=== PATIENT | female | born 1980 | race Caucasian/White ===

== ENCOUNTER 2016-08-05 21:26 | Emergency (ER) | payer BC ==
[~2016-08-05] VITALS: Ht 152.4 cm; Wt 63.0 kg
[~2016-08-05 21:26] MED LIST: ALBUTEROL-200 PUFFS/ IH; ALBUTEROL2 PUFFS/17 IN; ALLEGRA180 MG PO; ALLEGRA30 MG; ALLEGRA60 MG PO; AMOXIL500 MG PO; BACTRIM DS 8001 TAB PO; BENADRYL 25MG C25 MG PO; BENADRYL 50MG C50 MG PO; CIPRO 500MG TA500 MG PO; CIPROFLOXACIN500 MG PO; CLARINEX5 MG PO; CLARITIN 10MG T10 MG OR; CLARITIN 10MG T10 MG PO; CLARITIN10 MG PO; DIAZEPAM2 MG PO; DIAZEPAM5 MG PO; IBU400 MG PO; KEFLEX 500MG.500 MG PO; LASIX40 MG PO; LORTAB 7.5/3251 TAB PO; MEDROL 4MG. DOSE4 MG PO; MOTRIN 400MG.400 MG PO; PERCOCET 10 MG1 EACH PO; PERCOCET 5/3251 EACH PO; PREDNISONE 10MG10 MG PO; PREDNISONE 20MG20 MG PO; PREDNISONE20 MG PO; PREDNISONE50 MG PO; PYRIDIUM 200MG200 MG PO; RAPAFLO8 MG PO; SEPTRA DS 800 M1 TA1 PO; SINGULAIR10 MG PO; TESSALON PERLE100 MG PO; ULTRACET 325 MG1 TAB PO; VIBRAMYCIN 100100 MG PO; VISTARIL25 MG PO; VISTARIL50 MG PO; ZANTAC 150150 MG PO; ZANTAC 300300 MG PO; ZYRTEC 10MG TAB10 MG PO; ZYRTEC5 MG OR; [UNRECOGNIZED DRUG - OTHER] MR
[2016-08-05] MEDS ORDERED: NEURONTIN 100100 MG PO (21:33)
[2016-08-05 21:48] LABS: HEMOGLOBIN 16.2 g/dL (12.2-16.2); LYMPH # 4.3 K/mm3 (0.7-4.5); LYMPH % 45.7 % (10-50.0)
--- NOTE | 2016-08-05 21:48 | Emergency Room Report ---
History of Present Illness Time Seen by [id number] Presenting Problem in Triage Pt arrived:Walked Presenting Problem:C/O PAIN TO CENTER OF CHEST. REPORTS FUNNY IN THROAT. FEELS LIKE SOMETHING IN THROAT. 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 N Clinical Suspician of Infection? N Mental Status: 1 - Regular (Normal Baseline) Sepsis Risk:Low Sepsis Risk Have you (or family members/close friends) recently traveled outside the [place]? N If Yes, where/when: Have you had exposure to infectious disease within the past month? N TB? Other? Specify: Source patient, RN notes reviewed, family, old records Exam Limitations no limitations Comment acute onset of full feeling in throat with no sig heart disease or reflux Cardiac Chest Pain Chest pain indicative of cardiac No Timing/Duration this evening Severity moderate ALLERGIES Coded Allergies: naproxen (03/06/16) Home Medications Reported Medications Albuterol (Albuterol-Hfa Inhaler) 2 PUFFS IH Q6HP PRN SHORTNESS OF AIR #1 INH Gabapentin (Neurontin) 100 MG PO TID Diazepam (Diazepam 5MG) 5 MG PO TID History Medical History General CAD? No Angina: No NE: No Hypertension? No Hyperlipidemia? No CHF? No DVT? No PE? No COPD? No Asthma? Yes Anemia? No GERD? No Gastric ulcers? No GI Bleed? No Hernia? No Thyroid Problems? No Hypothyroidism? No CVA? No Seizures? No Diabetes? No Insulin Dependent: No Insulin Pump: No Home FSBS? No Renal Insuffiency? No End Stage Renal Disease? No UTI? No Stones? No BPH? No GB Disease: No Nephritic Syndrome? No Asplenia? No Hepatitis? No Sickle Cell Disease? No Arthritis? No Migraines? No Cataracts? No Glaucoma? No MRSA? No HIV? No TB? No Anxiety? No Depression? No Cancer? No More? 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 Respiratory denies cough, denies shortness of breath, denies wheezing Cardiovascular see HPI, chest pain, denies syncope Gastrointestinal denies abdominal pain, denies diarrhea, denies vomiting Genitourinary denies: dysuria, frequency, hesitancy, hematuria. Musculoskeletal denies back pain, denies joint pain, denies neck pain Skin denies rash Psychiatric/Neurological denies headache, denies seizure Physical Exam Vital Signs Vital Signs Date Time Temp Pulse Resp B/P Pulse O2 O2 Flow FiO2 Ox Delivery Rate 08/05 2225 91 18 112/71 99 08/05 2159 91 18 112/71 99 08/05 2127 98.4 84 18 143/92 99 - WBC >12,000 or <4,000 or 10% bands? 2 or more SIRS Criteria Met? B/P:112/71 MAP:109 Creatinine >2.0? UA output<0.5ml/kg/hr for 2 hrs? Platelet count >100,000? Lactate >2.0mmol/1? INR >1.2 or PTT > than 60 sec? Evidence of Organ Dysfunction? Provider documented clinical suspician of infection? N Sepsis Criteria Count: 0 Sepsis Risk: Low Sepsis Risk General Appearance no apparent distress Eye Exam - bilateral eye PERRL, bilateral eye EOMI Ear, Nose, Throat normal ENT inspection, normal pharynx Neck supple Respiratory Status No: respiratory distress. Lung Sounds bilateral: lungs clear. Cardiovascular regular rate/rhythm, no murmur, no rub Peripheral Pulses Pulses normal Yes Gastrointestinal soft Back no CVA tenderness Extremities normal inspection Strength 4 Upper Ext (L), 4 Upper Ext (R), 4 Lower Ext (L), 4 Lower Ext (R) Neurologic alert, first front ventilator II-XII nml as tested, no motor/sensory deficits Reflexes Reflexes normal Yes Mental status normal mood/affect Skin intact Medical Decision Making LABS/Meds/Orders Pt receiving controlled substance in ED? No Results/Orders Laboratory Tests 08/05/160: Sodium 140, Potassium 3.1 L, Chloride 104, Carbon Dioxide 27, BUN 6 L, Creatinine 0.8, Estimated Creat Clear 99, Estimated GFR (MDRD) 82, Glucose 88, Calcium 8.7, Total Bilirubin 0.2, AST 10 L, ALT 20, Alkaline Phosphatase 45 L, Creatine Kinase 87, CK-MB (CK-2) Rel Index 1.1, CK and CKMB Interp 1.0, Troponin I < 0.02, Total Protein 7.1, Albumin 3.7, Globulin 3.4 H, Albumin/Globulin Ratio 1.1, WBC 9.3, RBC 5.58 H, Hgb 16.2, Hct 48.2 H, MCV 86.3, RDW 13.7, Plt Count 328, MPV 8.2, Gran % 46.3, Gran # 4.3, Lymphocytes % 45.7, Monocytes % 4.7 , Eosinophils % 2.5, Basophils % 0.8, Lymphocytes # 4.3, Monocytes # 0.4, Eosinophils # 0.2, Basophils # 0.1, PUBS MCHC 33.5, MCH 28.9 Current Medication Orders Sig/Trena Start time Last Medication Dose Route Stop Time Status Admin Famotidine 20 MG ONCE ONE 08/05 2199 DC 08/05 IV 08/05 Metoclopramide HCl 10 MG ONCE ONE 08/05 2199 DC 08/05 IVP 08/05 Sodium Chloride 8 ML ONCE ONE 08/05 2199 DC 08/05 IV 08/05 Metoclopramide HCl 0 .STK-MED ONE 08/05 2155 DC .ROUTE Famotidine 0 .STK-MED ONE 08/05 2154 DC IV Sodium Chloride 10 ML PRN PRN 08/05 2144 AC 08/05 IV 08/06 Orders Procedure Date/time Status ELECTROCARDIOGRAM REQUEST 08/05 2134 Active CHEST(2 VIEWS-NOT PORTABLE) 08/05 2134 Active IV SALINE LOCK 08/05 2134 Active RIBBER 08/05 2134 Active COMPLETE METABOLIC PANEL 08/05 2134 Complete CBC WITH AUTO DIFF 08/05 2134 Complete CARDIAC ENZYMES 08/05 2134 Complete 12 LEAD EKG-TY (INITIAL) 08/05 UNK Active 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 ST/Twave chgs XRAY/CT/US XRAY/CT/US XRAY chest XR interpretation by reviewed by me Xray Results normal/NAD Progress ED Progress Notes Date 08/05/16 Time 2236 Comment improved Departure Departure Time of Disposition 2235 Disposition DC Home or Self Care(routine) Clinical Impression Primary Impression: Chest pain Qualifiers: Chest pain type: unspecified Qualified Code: R07.9 - Chest pain, unspecified Secondary Impressions: Globus sensation Condition STABLE Patient Instructions DI for Atypical Chest Pain Additional Instructions please see pcp for follow up Discharge Counseling Counseled pt/family regarding diagnosis, test results, medications/RX, follow up needs ED Critical Care Critical Care No at [phone]
--- NOTE | 2016-08-05 21:48 | Emergency Room Report ---
History of Present Illness Time Seen by [id number] Presenting Problem in Triage Pt arrived:Walked Presenting Problem:C/O PAIN TO CENTER OF CHEST. REPORTS FUNNY IN THROAT. FEELS LIKE SOMETHING IN THROAT. 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 N Clinical Suspician of Infection? N Mental Status: 1 - Regular (Normal Baseline) Sepsis Risk:Low Sepsis Risk Have you (or family members/close friends) recently traveled outside the [place]? N If Yes, where/when: Have you had exposure to infectious disease within the past month? N TB? Other? Specify: Source patient, RN notes reviewed, family, old records Exam Limitations no limitations Comment acute onset of full feeling in throat with no sig heart disease or reflux Cardiac Chest Pain Chest pain indicative of cardiac No Timing/Duration this evening Severity moderate ALLERGIES Coded Allergies: naproxen (03/06/16) Home Medications Reported Medications Albuterol (Albuterol-Hfa Inhaler) 2 PUFFS IH Q6HP PRN SHORTNESS OF AIR #1 INH Gabapentin (Neurontin) 100 MG PO TID Diazepam (Diazepam 5MG) 5 MG PO TID History Medical History General CAD? No Angina: No OR: No Hypertension? No Hyperlipidemia? No CHF? No DVT? No PE? No COPD? No Asthma? Yes Anemia? No GERD? No Gastric ulcers? No GI Bleed? No Hernia? No Thyroid Problems? No Hypothyroidism? No CVA? No Seizures? No Diabetes? No Insulin Dependent: No Insulin Pump: No Home FSBS? No Renal Insuffiency? No End Stage Renal Disease? No UTI? No Stones? No BPH? No GB Disease: No Nephritic Syndrome? No Asplenia? No Hepatitis? No Sickle Cell Disease? No Arthritis? No Migraines? No Cataracts? No Glaucoma? No MRSA? No HIV? No TB? No Anxiety? No Depression? No Cancer? No More? 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 Respiratory denies cough, denies shortness of breath, denies wheezing Cardiovascular see HPI, chest pain, denies syncope Gastrointestinal denies abdominal pain, denies diarrhea, denies vomiting Genitourinary denies: dysuria, frequency, hesitancy, hematuria. Musculoskeletal denies back pain, denies joint pain, denies neck pain Skin denies rash Psychiatric/Neurological denies headache, denies seizure Physical Exam Vital Signs Vital Signs Date Time Temp Pulse Resp B/P Pulse O2 O2 Flow FiO2 Ox Delivery Rate 08/05 2225 91 18 112/71 99 08/05 2159 91 18 112/71 99 08/05 2127 98.4 84 18 143/92 99 - WBC >12,000 or <4,000 or 10% bands? 2 or more SIRS Criteria Met? B/P:112/71 MAP:109 Creatinine >2.0? UA output<0.5ml/kg/hr for 2 hrs? Platelet count >100,000? Lactate >2.0mmol/1? INR >1.2 or PTT > than 60 sec? Evidence of Organ Dysfunction? Provider documented clinical suspician of infection? N Sepsis Criteria Count: 0 Sepsis Risk: Low Sepsis Risk General Appearance no apparent distress Eye Exam - bilateral eye PERRL, bilateral eye EOMI Ear, Nose, Throat normal ENT inspection, normal pharynx Neck supple Respiratory Status No: respiratory distress. Lung Sounds bilateral: lungs clear. 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 No Results/Orders Laboratory Tests 08/05/160: Sodium 140, Potassium 3.1 L, Chloride 104, Carbon Dioxide 27, BUN 6 L, Creatinine 0.8, Estimated Creat Clear 99, Estimated GFR (MDRD) 82, Glucose 88, Calcium 8.7, Total Bilirubin 0.2, AST 10 L, ALT 20, Alkaline Phosphatase 45 L, Creatine Kinase 87, CK-MB (CK-2) Rel Index 1.1, CK and CKMB Interp 1.0, Troponin I < 0.02, Total Protein 7.1, Albumin 3.7, Globulin 3.4 H, Albumin/Globulin Ratio 1.1, WBC 9.3, RBC 5.58 H, Hgb 16.2, Hct 48.2 H, MCV 86.3, RDW 13.7, Plt Count 328, MPV 8.2, Gran % 46.3, Gran # 4.3, Lymphocytes % 45.7, Monocytes % 4.7 , Eosinophils % 2.5, Basophils % 0.8, Lymphocytes # 4.3, Monocytes # 0.4, Eosinophils # 0.2, Basophils # 0.1, PUBS MCHC 33.5, MCH 28.9 Current Medication Orders Sig/Trena Start time Last Medication Dose Route Stop Time Status Admin Famotidine 20 MG ONCE ONE 08/05 2199 DC 08/05 IV 08/05 Metoclopramide HCl 10 MG ONCE ONE 08/05 2199 DC 08/05 IVP 08/05 Sodium Chloride 8 ML ONCE ONE 08/05 2199 DC 08/05 IV 08/05 Metoclopramide HCl 0 .STK-MED ONE 08/05 2155 DC .ROUTE Famotidine 0 .STK-MED ONE 08/05 2154 DC IV Sodium Chloride 10 ML PRN PRN 08/05 2144 AC 08/05 IV 08/06 Orders Procedure Date/time Status ELECTROCARDIOGRAM REQUEST 08/05 2134 Active CHEST(2 VIEWS-NOT PORTABLE) 08/05 2134 Active IV SALINE LOCK 08/05 2134 Active 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 ST/Twave chgs XRAY/CT/US XRAY/CT/US XRAY chest XR interpretation by reviewed by me Xray Results normal/NAD Progress ED Progress Notes Date 08/05/16 Time 2236 Comment improved Departure Departure Time of Disposition 2235 Disposition DC Home or Self Care(routine) Clinical Impression Primary Impression: Chest pain Qualifiers: Chest pain type: unspecified Qualified Code: R07.9 - Chest pain, unspecified Secondary Impressions: Globus sensation Condition STABLE Patient Instructions DI for Atypical Chest Pain Additional Instructions please see pcp for follow up Discharge Counseling Counseled pt/family regarding diagnosis, test results, medications/RX, follow up needs ED Critical Care Critical Care No at [phone]
[2016-08-05 22:16] LABS: BUN 6 mg/dL (7-18)
[2016-08-05 22:17] LABS: GFR (ESTIMATED) 82 ML/MIN (59-)
[2016-08-05 22:54] VITALS: BP 121/67
--- NOTE | 2016-08-06 07:55 | RADIOLOGY REPORT PS360 ---
CHEST(2 VIEWS-NOT PORTABLE) HISTORY: Chest pain and pressure C/O CHEST PAIN ORDERING PHYSICIAN: Juan Alberto Bridges MD PATIENT AGE: 36 years COMPARISON: 02/21/2011 FINDINGS: The cardiomediastinal silhouette and pulmonary vascularity are within normal limits. The lungs are clear without infiltrates, suspicious nodules, or pleural effusions. No acute bony abnormalities. IMPRESSION: Negative chest, no acute finding
== END 2016-08-05 22:55 | disposition home or self-care (01) ==
LOC: ER 21:26
PROVIDERS: Emergency Medicine
DX: R07.9 Chest pain, unspecified (principal); R13.10 Dysphagia, unspecified; Z72.0 Tobacco use